=== PATIENT | male | born 1965 | race Caucasian/White ===

== ENCOUNTER 2020-09-29 20:15 | Emergency (ER) | payer OTHER ==
[~2020-09-29] VITALS: Ht 190.5 cm; Wt 96.6 kg
[2020-09-29] MEDS ORDERED: GLIPIZIDE XL2.5 MG (20:47)
[2020-09-29] MEDS ORDERED: GLUMETZA1000 MG (20:47)
== END 2020-09-30 10:49 | disposition home or self-care (01) ==
LOC: ER 20:15
DX: K76.0 Fatty (change of) liver, not elsewhere classified (principal); R10.31 Right lower quadrant pain; R10.11 Right upper quadrant pain